=== PATIENT | male | born 1975 | race African-American/Black ===

== ENCOUNTER 2019-07-19 10:33 | Emergency (ER) | payer MEDICAID, OTHER ==
[~2019-07-19] VITALS: Ht 175.3 cm; Wt 98.4 kg
[2019-07-19 11:02] VITALS: BP 103/73
[2019-07-19] MEDS ORDERED: METHOCARBAMOL 500 MG TAB PO ONE (12:00)
[2019-07-19] MEDS ORDERED: KETOROLAC TROMETH 60MG/2ML VIAL IM ONE (12:00)
== END 2019-07-19 12:53 | disposition home or self-care (01) ==
LOC: ER 10:33
DX: M43.6 Torticollis (principal); J03.90 Acute tonsillitis, unspecified; G89.29 Other chronic pain; M54.5 Low back pain; F17.210 Nicotine dependence, cigarettes, uncomplicated
CPT/HCPCS: 96372; 99283; J1885